=== PATIENT | male | born 1930 | race African-American/Black ===

== ENCOUNTER 2016-10-10 23:29 | Inpatient (IN) | payer OTHER ==
[~2016-10-10] VITALS: Ht 180.3 cm; Wt 75.7 kg
--- NOTE | ~2016-10-10 | HC ---
[facility] [place] [place] [address] CONSULTATION Name: JACQUELINE BETANCUR Amanda Room #: 241-P ADM IN M.R.#: [id number] Admission: 10/11/16 Attend Phys: Adonay Reddy MD Discharge: Date of : 32 Report #: [id number] THIS REPORT FOR: //name// CC: Prasad Singletary MD NO PCP DATE OF SERVICE: 10/11/2016 DATE OF SERVICE: 10/11/2016. REFERRING PROVIDER: Isac Singletary MD REASON FOR CONSULTATION: Respiratory failure. CHIEF COMPLAINT: Shortness of breath. HISTORY OF PRESENT ILLNESS: Our group was called about 5:30 this morning to evaluate the patient seen in the ICU this morning. He is unable to give any history due to the fact, he is on mechanical ventilatory support. No family immediately available at the bedside. Records reviewed from [facility] are available, and case discussed with healthcare providers. He is an 85-year-old male who has had a complicated course after an abdominal surgery. 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 He has been on TPN apparently since January with associated complications. He has been in a long-term care facility. He has a history of cardiomyopathy, ejection fraction of 30%, COPD with associated pulmonary hypertension and recurrent episodes of sepsis likely associated with line infections due to ongoing TPN. He started having increasing shortness of breath yesterday. Chest radiographs had shown some progression of a right-sided chest opacity. The patient was sent to the emergency department here at [facility] and subsequently admitted and placed on BiPAP due hypercapnic respiratory failure earlier this morning. He was found to be pulseless and unresponsive. The patient required CPR and emergent intubation and is now in the ICU on norepinephrine drip as well as mechanical ventilatory support. Acid base status has improved. In the interim, the patient responds well, open eyes at this time. ALLERGIES: None known. MEDICATIONS WHILE AT [place]: Include: 1. Clonidine 0.5 patch. 2. Diltiazem p.r.n. 3. Eucerin cream. 4. Lasix 40 mg daily. [facility] [address] [place] [address] CONSULTATION Name: JACQUELINE BETANCUR Room #: [facility] IN [facility].#: [id number] Admission: 10/11/16 Attend Phys: Adonay Reddy MD Discharge: Date of : 32 Report #: [id number] 5. Famotidine 20 mg q.12 hours IV. 6. Fentanyl 25 mcg patch. 7. Haldol p.r.n. 8. Heparin 5000 units subcutaneous q.8 hours. 9. Hydralazine p.r.n. 10. Hydrocodone p.r.n. 11. Hydromorphone p.r.n. 12. Insulin sliding scale. 13. DuoNebs q.i.d. 14. Keppra 375 twice daily IV. 15. Synthroid 0.025 mg IV daily. 16. Lidocaine patch. 17. Metoprolol p.r.n. 18. Octreotide 100 mg subcutaneously q.8 hours. 19. Seroquel 12.5 mg q.6 hours p.r.n. 20. TPN. SOCIAL HISTORY: Unobtainable due to his current status. FAMILY HISTORY: Unobtainable due to current status. REVIEW OF SYSTEMS: Otherwise, unobtainable due to current status. PAST MEDICAL HISTORY: Includes cardiomyopathy; peripheral vascular disease; COPD; history of left tsrid-ahc-zbtm amputation; pulmonary hypertension; chronic enterocutaneous fistula, on TPN; diabetes mellitus type 2; hypothyroidism; hypertension; possible depressive disorder. PHYSICAL EXAMINATION: VITAL SIGNS: He is hypothermic, pulse 80 and regular, respiratory rate 18 consistent with ventilator setting, blood pressure 130/70, peak pressure of 30 with assist control set at rate of 18, tidal volume of 550, and PEEP of 5. GENERAL: This is an elderly male, arousable, moving all extremities, appears to be responsive to voice. ENT: Endotracheal tube in place. Oropharynx not fully assessed. NECK: Supple. No lymphadenopathy noted. Jugular venous pressure does not appear elevated. LUNGS: Diminished on the right with some expiratory wheeze noted, but otherwise clear. CARDIOVASCULAR: Heart regular. No murmurs noted. ABDOMEN: Soft, large ostomy bag over but may be either fistula, but appears large enough to be an ostomy. Large healing midline incision noted. Bowel sounds were present. No tenderness noted on palpation. EXTREMITIES: Left tisob-lxj-fomz amputation with minimal edema. Pulses were 2+ in the upper extremities. [address] [address] CONSULTATION Name: GYPSYJACQUELINE D Room #: 241-P [facility] IN M.R.#: [id number] Admission: 10/11/16 Attend Phys: Adonay Reddy MD Discharge: Date of : 32 Report #: [id number] LABORATORY DATA: White blood cell count 21,000; hemoglobin 9; hematocrit 28 and platelet count 152. Sodium 143, potassium 3.5, chloride 105, bicarbonate 29, BUN 40, creatinine 1.0, glucose 101. Arterial blood gas on assist control, tidal volume 550, rate of 16, PEEP of 5 revealed pH 7.32, pCO2 of 61, pO2 is 460, bicarbonate 31. IMAGING STUDIES: Chest x-ray, there is right basilar opacity suggestive of pleural effusion, endotracheal tube, NG tube and PICC line in good position. IMPRESSION: 1. Status post cardiopulmonary arrest requiring cardiopulmonary resuscitation likely due to respiratory event. 2. Acute hypercapnic respiratory failure, improved with mechanical ventilatory support. 3. Right basilar opacity consistent with probable right pleural effusion. 4. History of enterocutaneous fistula, chronic. 5. History of chronic total parenteral nutrition. 6. Sepsis syndrome based on elevated white blood cell count, hypotension and organ dysfunction with respiratory failure. 7. Anemia. 8. Chronic obstructive pulmonary disease. 9. Cardiomyopathy. SUGGESTIONS: 1. Sepsis protocol. 2. CT chest, abdomen and pelvis. 3. Consider thoracentesis to the right chest if significant effusion is present. 4. Infectious disease consultation regarding antibiotics, cultures. 5. Consider changing out a PICC line depending on culture findings and the underlying history of the PICC placement. 6. Continue with mechanical ventilatory support. 7. Bronchodilators. 8. Await multiple cultures. 9. More recommendations to follow. Thank you for requesting our suggestions. Total critical care at the time of evaluation, discussion with nursing, physicians, and review of chart over 40 minutes, not including any procedures. <ELECTRONICALLY SIGNED> By: Ghulam Garcia MD 10/16/16 1133 0906 [id number] Ghulam Garcia MD /nt
--- NOTE | ~2016-10-10 | P ---
[facility] [address] [address] [place] [address] PROCEDURE REPORT Name: JACQUELINE BETANCUR Amanda Room #: 241-P ADM IN M.R.#: [id number] Admission: 10/11/16 Attend Phys: Coy Blanco DO Discharge: Date of : 32 Report #: [id number] THIS REPORT FOR: //name// CC: Coy Blanco NO PCP DATE OF SERVICE: 10/21/2016 PREPROCEDURE DIAGNOSIS: Pressure ulceration to the right lateral heel. POSTPROCEDURE DIAGNOSES: Pressure ulceration to the right lateral heel. PROCEDURE PERFORMED: Sharp excisional debridement of right lateral heel ulceration. DESCRIPTION OF PROCEDURE: The patient has given verbal permission to perform debridement. Anesthesia was obtained with topical 2% lidocaine gel. A sharp curette was then utilized to remove both necrotic and some viable tissue exceeding the wound margins laterally and in the base into subcutaneous tissue and down to a healthy bleeding base. Estimated blood loss was approximately 3 mL. Hemostasis was obtained with direct pressure. The patient had no complications. Pain level approximately 3 on a scale of 1-10. During the procedure, post-debridement wound measurements include 3.9 x 2.3 x 0.5 cm. A Medihoney dressing will be continued. The patient tolerated the procedure well. <ELECTRONICALLY SIGNED> By: Kilo Alonzo MD 10/24/16 0851 [id number] [id number] Kilo Alonzo MD /nt
--- NOTE | ~2016-10-10 | 2DMMODE ---
[facility] [address] [employer] [place] [address] 2 D/M-MODE ECHOCARDIOGRAM Name: JACQUELINE BETANCUR Room #: 241-P ADM IN M.R.#: [id number] Admission: 10/11/16 Attend Phys: Isac Galaviz Discharge: Date of : 32 Date of Service: 10/11/16 1623 Report #: [id number] THIS REPORT FOR: //name// APPROVED REPORT Study performed: 10/11/2016 13:24:57 EXAM: Comprehensive 2D, Doppler, and color-flow Echocardiogram Patient Location: Bedside Room #: 241 Other Information Study Quality: Adequate Indications Congestive Heart Failure COPD Diabetes CAD Chest Pain 2D Dimensions RVDd: 42.18 mm LVEF(%): 78.36 (>50%) IVSd: 16.81 (7-11mm) LVOT Diam: 21.97 (18-24mm) LVDd: 41.65 mm PWd: 15.83 (7-11mm) Ascending Ao: 30.27 (22-36mm) LVDs: 22.25 (25-40mm) Aortic Root: 29.28 mm IVC: 24.00 mm Garcia's LVEF: 78.36 % Volumes Left Atrial Volume (Systole) Single Plane 4CH: 48.69 mL Single Plane 2CH: 88.92 mL LA ESV Index: 36.00 mL/m2 Aortic Valve AoV Peak Sergio.: 2.17 m/s AO Peak Gr.: 18.85 mmHg LVOT Max P.98 mmHg LVOT Max V: 1.58 m/s BURTON Vmax: 2.76 cm2 Mitral Valve E/A Ratio: 0.9 MV Decel. Time: 341.21 ms [facility] [address] [place] [place] [address] 2 D/M-MODE ECHOCARDIOGRAM Name: JACQUELINE BETANCUR Room #: [facility] IN [facility].#: [id number] Admission: 10/11/16 Attend Phys: Isac Galaviz Discharge: Date of : 32 Date of Service: 10/11/16 1623 Report #: [id number] E Max Sergio.: 0.99 m/s MV A Sergio.: 1.10 m/s MV PHT: 98.95 ms IVRT: 128.03 ms Pulmonary Valve PV Peak Sergio.: 1.16 m/s PV Peak Gr.: 5.42 mmHg Pulmonary Vein P Vein S: 0.91 m/s P Vein A: 0.13 m/s P Vein D: 0.60 m/s P Vein A Dur.: 86.5 msec P Vein S/D Ratio: 1.52 Tricuspid Valve TR Peak Sergio.: 3.13 m/s RAP Estimate: 15.00 mmHg TR Peak Gr.: 39.18 mmHg Left Ventricle The left ventricle is normal size. There is normal LV segmental wall motion. Moderate concentric left ventricular hypertrophy. Left ventricular systolic function appears hyperdynamic. LVEF is >70%. Grade I - abnormal relaxation pattern. Right Ventricle Right ventricle is normal The right ventricular systolic function is normal. Atria Left atrium is borderline dilated. The right atrium size is normal. Aortic Valve The aortic valve is normal in structure. No aortic regurgitation is present. There is no aortic valvular stenosis. Mitral Valve The mitral valve is normal in structure. There is no mitral valve regurgitation noted. No evidence of mitral valve stenosis. Tricuspid Valve The tricuspid valve is normal in structure. Trace to mild tricuspid regurgitation. Pulmonic Valve The pulmonary valve is normal in structure. There is no [place]mon[place] [address] 2 D/M-MODE ECHOCARDIOGRAM Name: JACQUELINE BETANCUR Room #: 241-P [facility] IN .R.#: [id number] Admission: 10/11/16 Attend Phys: Isac Galaviz Discharge: Date of : 32 Date of Service: 10/11/16 1623 Report #: [id number] Great Vessels The aortic root is normal in size. IVC is dilated and unable to visualize collapse, patient is on a vent. Pericardium Circumferential pericardial effusion is present. No echo indications of pericardial tamponade. <Conclusion> Moderate concentric left ventricular hypertrophy. There is normal LV segmental wall motion. EF 65% The aortic valve is normal in structure. No aortic valvular stenosis or insufficiency. The mitral valve is normal in structure. No mitral valve regurgitation noted. IVC is dilated and unable to visualize collapse, patient is on a vent. Pulmonary artery pressure of 45-50mmHg. Moderately large pericardial effusion. Doppler study insufficient to exclude early tamponade physiology. <ELECTRONICALLY SIGNED> By: Tony Patel MD, [facility] 10/11/16 1623 1623 1623 Tony Patel MD, FACC /INF
--- NOTE | ~2016-10-10 | HC ---
[facility] [place] [address] [place] [address] CONSULTATION Name: GYPSYJACQUELINE D Room #: 241-P ADM IN M.R.#: [id number] Admission: 10/11/16 Attend Phys: Isac Singletary Discharge: Date of : 32 Report #: [id number] THIS REPORT FOR: //name// CC: Isac Singletary NO PCP REASON FOR CONSULTATION: I was asked to evaluate concerning sepsis and pneumonia with respiratory failure post-code. HISTORY OF PRESENT ILLNESS: The patient is an 85-year-old transferred from [facility] with respiratory compromise. In the emergency room, he became bradycardiac and required cardiac resuscitation and intubation, now on mechanical ventilation. The patient is an 85-year-old initially treated at [facility] following small-bowel obstruction. On 01/21/2016, he underwent exploratory laparotomy and repair of enterotomy. He had extensive adhesions and multiple loops of small bowel near to the incision site. Subsequently, the patient developed an enterocutaneous fistula. He was treated with TPN and bowel rest. He has been hospitalized at [facility] since 02/07/2016. He also has a history of coronary artery disease and cardiomyopathy with an ejection fraction of 30%, along with severe pulmonary hypertension, COPD and recurring episodes of sepsis. He has had gram-negative bacteremia and candidemia. It was noted yesterday that he became more short of breath. Chest x-ray showed extensive right lung infiltrate and effusion which had increased. There was some concern about congestive heart failure. Trial of diuresis failed to improve his status, and he was transferred for further treatment. PAST MEDICAL HISTORY: Diabetes, hypertension, hypernatremia, hypothyroidism, COPD, pulmonary hypertension, coronary artery disease, cardiomyopathy, seizure disorder, gastroesophageal reflux, hematuria, arthritis, appendectomy, left below knee amputation, previous colostomy with takedown. FAMILY HISTORY: Diabetes. SOCIAL HISTORY: He is a past smoker. No significant alcohol intake. ALLERGIES: No known allergies. MEDICATIONS: As noted on JUL, now on vancomycin, Levaquin and Zosyn. He has been on TPN. REVIEW OF SYSTEMS: The patient was unable to give any further details. He has a left upper extremity PICC. He is orally intubated, has an indwelling Astorga catheter. He has an abdominal fistula with bowel extruding from the wound. PHYSICAL EXAMINATION: [facility] [address] [place] [address] CONSULTATION Name: JACQUELINE BETANCUR Room #: 241-P [facility] IN .R.#: [id number] Admission: 10/11/16 Attend Phys: Isac Singletary Discharge: Date of : 32 Report #: [id number] VITAL SIGNS: He was hypothermic with temperature 92.6, now with a Edith Hugger on, pulse was 77, blood pressure 149/79, and MAP of 100 on Levophed drip, which is being tapered down, FiO2 of 40%. GENERAL: He was on propofol but was arousable. HEENT: Unremarkable. Orally intubated. NECK: Supple. LUNGS: Decreased breath sounds in the right side. HEART: Regular, without murmur. ABDOMEN: He had a large wound to his mid abdomen with a small bowel exposed. Abdomen was soft, otherwise no other masses. GENITOURINARY: Indwelling Astorga catheter. Genitalia unremarkable. EXTREMITIES: Left BKA site unremarkable. Right lower extremity with a pressure wound over the lateral malleolus. LABORATORY AND DIAGNOSTIC STUDIES: Hemoglobin 9.2; WBC 20.8; platelet count 152,000, bands 11%, metamyelocytes 3%, occasional burst cells, occasional target cells, few ovalocytes. Sodium 143, potassium 3.5, bicarbonate 29, creatinine 1, AST 27, bilirubin 0.6, alkaline phosphatase 164, ALT 25, albumin at 2.6. Chest x-ray: Cardiomegaly, wide mediastinum. PICC line, left with tip in the SVC. Moderately large right pleural effusion with basilar atelectasis and infiltrate. Small area of infiltrate in the left mid lung and base. ABGs on 100% FIO2 earlier this a.m., pO2 is 460, pCO2 of 60, pH 7.32. Troponin 0.15. Electrocardiogram, sinus rhythm, atrial premature complex. IMPRESSION: An 85-year-old with respiratory failure, post-code, right pleural effusion with pneumonitis likely, combination along with atelectasis in the setting of chronic total parenteral nutrition for enterocutaneous fistula. Source of his sepsis, I would expect pulmonary over intraabdominal source versus urinary tract or possibly central venous access infection. We would recommend continuing broad antibiotic coverage pending culture results. We will await sputum culture, blood cultures, obtain urinalysis and urine culture. We would consider thoracentesis over the right chest. Considering this is his 8th month postop, I would think that the fistula has a very poor chance of healing. We would consider alternative means of nutrition from total parenteral nutrition. May need to discuss this further with surgical consultation. <ELECTRONICALLY SIGNED> By: Prasad Rankin MD 10/12/16 1112 0841 0106 Prasad Rankin MD /nt
--- NOTE | ~2016-10-10 | HC ---
[facility] [place] [address] CONSULTATION Name: GYPSYJACQUELINE D Room #: 241-P ADM IN M.R.#: [id number] Admission: 10/11/16 Attend Phys: Adonay Reddy MD Discharge: Date of : 32 Report #: [id number] THIS REPORT FOR: //name// CC: Coy SWANN DATE OF SERVICE: 10/14/2016 DATE OF EVALUATION AND CONSULTATION: 10/14/2016. CHIEF COMPLAINT: Right lateral ankle ulcer. HISTORY OF PRESENT ILLNESS: This is an 85-year-old male patient who is seen in intensive care. He was transferred from for progressive shortness of breath. It was noted that he on 10/11/2016, had an episode of bradycardia and became unresponsive and pulseless. He was resuscitated and intubated. He is now on a respirator. He is unable to respond to questioning, and additional details are from review of current medical records. The patient was originally treated at [facility] following a small-bowel obstruction. In January, he underwent exploratory laparotomy and repair of enterotomy. He had multiple adhesions and had developed an enterocutaneous fistula which was treated with TPN and bowel rest and reportedly has been hospitalized at [facility]. PAST MEDICAL HISTORY: Other than that mentioned in the history of present illness, positive for coronary artery disease, cardiomyopathy, ejection fraction of 30%, severe pulmonary hypertension, COPD, recurring episodes of sepsis. He has a history of diabetes, hypernatremia, hypothyroidism, seizure disorder, and gastroesophageal reflux. Previous colostomy with takedown, left below knee amputation. FAMILY HISTORY: Positive for diabetes. SOCIAL HISTORY: It is noted that he is a past smoker. No history of known alcohol intake. ALLERGIES: None. MEDICATIONS: Noted on the JUL. He is also currently on intravenous antibiotics. He has also been on TPN. REVIEW OF SYSTEMS: Unobtainable due to the patient's unresponsive state. PHYSICAL EXAMINATION: VITAL SIGNS: Include temperature of 96, pulse rate 56, respiratory rate of 25, blood pressure 97/44. [facility] [address] [place] [address] CONSULTATION Name: JACQUELINE BETANCUR Room #: 241-P [facility] IN ..#: [id number] Admission: 10/11/16 Attend Phys: Adonay Reddy MD Discharge: Date of : 32 Report #: [id number] GENERAL: This is a chronically ill-appearing male patient who is lying in bed with his eyes closed. He has been minimally responsive. HEENT: Head is normocephalic. The patient is currently intubated orotracheally. LUNGS: Diminished. HEART: Sounds slightly distant. ABDOMEN: Soft, slightly distended. The patient has an enterocutaneous fistula. EXTREMITIES: Examination of lower extremities demonstrates what appears to be a well-healed left below-knee amputation. The patient has ulceration on the right lateral ankle. There is some granulation tissue at the margins. The full depth is not entirely appreciated, though does not appear to have any deep bony structures exposed at this time. There is moderate fibrin clot present. CLINICAL IMPRESSION: 1. Presumed pressure ulceration to the right lateral ankle. 2. Peripheral arterial disease by clinical exam. 3. History of small-bowel obstruction and surgery with subsequent enterocutaneous fistula. RECOMMENDATION AT THIS POINT IN TIME: At some point, it may be appropriate to assess the patient's arterial status. We will recommend that he would be turned and repositioned. We will review notes for current management of his enterocutaneous fistula. Continue nutritional support, turning your position every 2 hours, a protective boot to the right lower extremity. Please see wound care orders for specific care regimen to the right ankle. I appreciate being asked to see him in consultation. <ELECTRONICALLY SIGNED> By: Kilo Alonzo MD 10/16/16 2037 0931 2155 Kilo Alonzo MD /nt
--- NOTE | ~2016-10-10 | P ---
[facility] [place] [address] [address] PROCEDURE REPORT Name: GYPSYJACQUELINE JAY Amanda Room #: 241-P [facility] IN M.R.#: [id number] Admission: 10/11/16 Attend Phys: Coy Blanco DO Discharge: Date of : 32 Report #: [id number] THIS REPORT FOR: //name// CC: Coy MOLINA PCP DATE OF SERVICE: 10/22/2016 INDICATION: Respiratory failure, recurrent mucous plugging and hypoxemia. PROCEDURE NOTATION: The patient was hypoxemic while off BiPAP and had difficulty recovering while on noninvasive positive pressure ventilation. Has had difficulty with mucus plugging. The patient indicated for repeat intubation. The patient was given 24 mg of etomidate after being in adequate position in a sniff position. The patient was adequately sedated with this. The patient was able to bag mask, ventilate with oxygen saturation 100% using a MAC 4 blade. Grade I view of the vocal cords was noted. There were some secretions noted on top of the vocal cords. An 8.0 endotracheal tube was inserted and advanced 25 cm at the lip. Positive bilateral breath sounds and Easy Cap color changes were noted. On subsequent bronchoscopy, the endotracheal tube was confirmed in good position and adjusted to 25 cm and secured at this position. Please see subsequent bronchoscopy note for further details. <ELECTRONICALLY SIGNED> By: Ghulam Garcia MD 10/27/16 1203 1028 37 Ghulam Garcia MD /harvey
--- NOTE | ~2016-10-10 | P ---
[facility] [place] [address] PROCEDURE REPORT Name: GYPSYJACQUELINE VELASCO Amanda Room #: 241-P [facility] IN M.R.#: [id number] Admission: 10/11/16 Attend Phys: Coy Blanco DO Discharge: Date of : 32 Report #: [id number] THIS REPORT FOR: //name// CC: Coy Blanco NO PCP DATE OF SERVICE: 10/22/2016 BRONCHOSCOPY NOTE DATE OF SERVICE: 10/22/2016. PROCEDURE: Fiberoptic bronchoscopy through an endotracheal tube with of mucus plugging. INDICATION: Recurrent mucous plugging and respiratory failure. PROCEDURE NOTATION: After adequate intubation, disposable bronchoscope was advanced through the endotracheal tube and endotracheal tube was subsequently repositioned at 25 cm, which was a good position above the brodie. This was secured in place and airways were surveyed. Significant mucus plugging was noted within the right main stem bronchus, left lower lobe bronchus and also some significant thick tracheal secretions were noted on initial bronchoscopy. These were purged and aspirated and with subsequent washings sent for cultures. Airways were patent after procedure with no significant mass, lesions or other anatomic variations noted. The patient tolerated well. No noted complications, remained maintain oxygen saturation 100% throughout the procedure. The patient had been sedated with propofol while on mechanical ventilatory support. <ELECTRONICALLY SIGNED> By: Ghulam Garcia MD 10/27/16 1203 1029 1111 Ghulam Garcia MD /harvey
--- NOTE | ~2016-10-10 | CNG ---
[facility] [place] [address] CYTO-NONGYN REPORT PROCEDURE Name: NACHO BETANCUR Room #: 241-P ADM IN M.R.#: [id number] Admission: 10/11/16 Date of : 34 Discharge: Report #: [id number] Path Case #: [id number] CYTOPATHOLOGY REPORT COLLECTION DATE: 10/22/2016 RECEIVED DATE: 10/22/2016 SUBMITTING PHYS: Dr. Ghulam Garcia OTHER PHYS: Dr. Coy Blanco CLINICAL HISTORY: Resp distress/PNA/pleural effusion. SPECIMEN(S) RECEIVED: A.Bronchial wash, NOS * * * * * * * * * * * * FINAL DIAGNOSIS: A. Bronchial wash, NOS: ATYPICAL CLUSTERS OF CELLS IDENTIFIED; SEE COMMENT. COMMENT: Few groups of atypical cells with enlarged nuclei are identified forming glands; however with cilia. Findings may be suggestive of a reactive process in a background of inflammation. Clinical correlation is suggested. PATHOLOGIST: Lexi Small M.D. REPORT ELECTRONICALLY SIGNED BY: Lexi mSall M.D. DATE/TIME: 10/23/2016 14:50 * * * * * * * * * * * * GROSS PATHOLOGY: A. Bronchial wash, NOS: The specimen is submitted unfixed, labeled "Nacho Betancur". Received by the Cytology Department is 10 mL of cloudy pink fluid. One ThinPrep slide was prepared. (clt 10.22.2016) SADDLE MECHANIC(S): OPHELIA Jackson(ASCP) INITIAL CPT CODE(S): A; 45838 Professional services performed by [facility] at [facility] [address], [place] [address] Technical services performed by [facility] at [address] [place] [address], [address] [address] [facility] [address] [place] [address] CYTO-NONGYN REPORT PROCEDURE Name: NACHO BETANCUR Room #: 241-P ADM IN M.R.#: [id number] Admission: 10/11/16 Date of : 34 Discharge: Report #: [id number] Path Case #: [id number] [facility] [address] [place] [address], [address] [place] [address] PHONE: [phone] DIRECTOR: Aaron To M.D. * * * END OF REPORT * * *
--- NOTE | ~2016-10-10 | EKG ---
[address] [place] [address] ELECTROCARDIOGRAM REPORT Name: JACQUELINE BETANCUR Room #: 241-P ADM IN M.R.#: [id number] Admission: 10/11/16 Attend Phys: Isac Singletary Discharge: Date of : 34 Report #: [id number] THIS REPORT FOR: //name// [facility] ED Test Date: 2016-10-11 Test Time: 01:40:15 Pat Name: JACQUELINE BETANCUR Department: Room: 241 Gender: M Design Lead: [id number] : 1930 Requested By: Kathy Macias Order Number: [id number] MD: Tony Patel Measurements Intervals [place] Rate: 63 P: 47 GA: 189 QRS: 22 QRSD: 93 T: 46 QT: 449 QTc: 460 Interpretive Statements Sinus rhythm Atrial premature complex No previous ECG available for comparison Electronically Signed On 10-11-2016 16:45:50 CDT by Tony Patel [email or web address] <ELECTRONICALLY SIGNED> By: Tony Patel MD, [facility] 10/11/16 1645 0140 0140 Tony Patel MD, FACC /EPI
--- NOTE | ~2016-10-10 | CNG ---
[facility] [place] [place] [address] CYTO-NONGYN REPORT PROCEDURE Name: NACHO BETANCUR Room #: 241-P ADM IN M.R.#: [id number] Admission: 10/11/16 Date of : 34 Discharge: Report #: [id number] Path Case #: [id number] CYTOPATHOLOGY REPORT COLLECTION DATE: 10/12/2016 RECEIVED DATE: 10/13/2016 SUBMITTING PHYS: Dr. Ghulam Garcia OTHER PHYS: Dr. Isac Singletray CLINICAL HISTORY: Resp distress/PNA/pleural effusion. SPECIMEN(S) RECEIVED: A.Pleural fluid, Right * * * * * * * * * * * * FINAL DIAGNOSIS: A. Pleural fluid, Right: - No malignant cells identified. - Paucicellular specimen with rare reactive mesothelial cells and scattered predominantly chronic inflammatory cells identified. PATHOLOGIST: Vania Magana M.D. REPORT ELECTRONICALLY SIGNED BY: Vania Magana M.D. DATE/TIME: 10/14/2016 13:01 * * * * * * * * * * * * GROSS PATHOLOGY: A. Pleural fluid, Right: The specimen is submitted unfixed, labeled "Nacho Betancur". Received by the Cytology Department is 10 mL of cloudy yellow fluid. One ThinPrep slide and a cell block were prepared. (clt 10.13.2016) DOLL SURGEON(S): OPHELIA Jackson([facility]) INITIAL CPT CODE(S): A; 80490, 73923 Professional services performed by [facility] at [facility] [address], [place] [address] Technical services performed by [facility] at [address] [place] [address]., [address], [place] [address]. [facility] [address] [place] [address], [address] [place] [address] [facility] [address] [place] [address] CYTO-NONGYN REPORT PROCEDURE Name: NACHO BETANCUR Room #: 241-P ADM IN ..#: [id number] Admission: 10/11/16 Date of : 34 Discharge: Report #: [id number] Path Case #: [id number] PHONE: [phone] DIRECTOR: Aaron To M.D. * * * END OF REPORT * * *
[2016-10-10 23:30] VITALS: BP 133/93
[2016-10-10 23:57] LABS: ABG SAMPLE TYPE ARTERIAL; BE(vivo) 6.5 mmol/L (-2 to +3); HCO3 35.9 mmol/L (22.0-26.0); LACTATE 1.45 mmol/L (0.5-2.0); O2(CT) 13.4 mL/dL (15.0-23.0); O2Hb 92.1 % (92.0-98.0); PCO2 85.3 mmHg (35.0-45.0); PO2 75.2 mmHg (80.0-100.0); STICK SITE L.RADIAL; pH 7.242 (7.360-7.450); sO2 91.8 % (92.0-98.0); tCO2 38.5 mmol/L (24.0-30.0)
[2016-10-11] VITALS (25 sets, daily range): BP systolic 50–149; BP diastolic 28–79
[2016-10-11 00:14] LABS: HEMATOCRIT 28.7 % (42.0-52.0); HEMOGLOBIN 9.4 gm/dL (14.0-18.0); MCH 30.3 pg (26.0-34.0); MCHC 32.8 g/dL (28.0-37.0); MCV 92.5 fL (80.0-100.0); PLATELET COUNT 149 thou/uL (150-400); RDW 17.5 % (10.5-14.5); WBC 9.4 thou/uL (4.0-11.0)
[2016-10-11 00:22] LABS: CALCIUM 9.6 mg/dL (8.5-10.1); POTASSIUM 3.9 mmol/L (3.5-5.1)
[2016-10-11 00:23] LABS: MANUAL DIFF YES
[2016-10-11 00:49] LABS: ABSOLUTE NEUTROPHILS 7.1 thou/uL (1.4-8.2); ANISOCYTOSIS 1+; LARGE PLATELETS FEW; TOTAL CELL COUNT 100
[2016-10-11 01:09] LABS: ABG SAMPLE TYPE ARTERIAL; HCO3 35.1 mmol/L (22.0-26.0); LACTATE 1.32 mmol/L (0.5-2.0); O2(CT) 12.7 mL/dL (15.0-23.0); O2Hb 91.8 % (92.0-98.0); PCO2 72.6 mmHg (35.0-45.0); PO2 70.8 mmHg (80.0-100.0); pH 7.302 (7.360-7.450); sO2 91.9 % (92.0-98.0); tCO2 37.3 mmol/L (24.0-30.0)
[2016-10-11 01:10] LABS: FIO2 40 %; Pressure Support 14 cm H20; STICK SITE L.RADIAL
[2016-10-11 05:08] LABS: ABG SAMPLE TYPE ARTERIAL; BE(vivo) 3.7 mmol/L (-2 to +3); HCO3 30.8 mmol/L (22.0-26.0); LACTATE 2.66 mmol/L (0.5-2.0); O2(CT) 15.1 mL/dL (15.0-23.0); O2Hb 98.9 % (92.0-98.0); PCO2 60.8 mmHg (35.0-45.0); PO2 460.1 mmHg (80.0-100.0); STICK SITE R.RADIAL; TIDAL VOLUME 550 ml; pH 7.322 (7.360-7.450); sO2 99.8 % (92.0-98.0); tCO2 32.6 mmol/L (24.0-30.0)
[2016-10-11 05:56] LABS: HEMATOCRIT 28.4 % (42.0-52.0); HEMOGLOBIN 9.2 gm/dL (14.0-18.0); MANUAL DIFF YES; MCHC 32.3 g/dL (28.0-37.0); MCV 92.9 fL (80.0-100.0); PLATELET COUNT 152 thou/uL (150-400); RBC 3.06 mil/uL (4.50-6.00); RDW 17.8 % (10.5-14.5); WBC 20.8 thou/uL (4.0-11.0)
[2016-10-11 06:06] LABS: CALCIUM 8.9 mg/dL (8.5-10.1); POTASSIUM 3.5 mmol/L (3.5-5.1)
[2016-10-11 06:11] LABS: ALBUMIN 2.6 g/dL (3.4-5.0); MAGNESIUM 1.8 mg/dL (1.8-2.4); TOTAL BILIRUBIN 0.6 mg/dL (<0.1-1.0); TOTAL PROTEIN 6.5 g/dL (6.4-8.2)
[2016-10-11 07:17] LABS: ABSOLUTE NEUTROPHILS 18.5 thou/uL (1.4-8.2); LARGE PLATELETS FEW; METAMYELOCYTES 3 %; TOTAL CELL COUNT 100
[2016-10-11 07:18] LABS: ANISOCYTOSIS 1+; BURR CELLS OCCASIONAL; HYPOCHROMASIA SLIGHT; OVALOCYTES FEW; POIKILOCYTOSIS 1+; TARGET CELLS OCCASIONAL
[2016-10-11] MEDS ORDERED: FEVERALL650 MG RECTAL (07:25)
[2016-10-11] MEDS ORDERED: CATAPRES-TTS 10.1 MG TOP (07:28)
[2016-10-11] MEDS ORDERED: DIPHENHYDRAM50 MG/M2 IV (07:29)
[2016-10-11] MEDS ORDERED: DIAZEPAM5 MG/1 M1 IV (07:29)
[2016-10-11] MEDS ORDERED: EUCERIN CREME57 GM TOP (07:30)
[2016-10-11] MEDS ORDERED: FAMOTIDINE10 MG/1 ML IV (07:31)
[2016-10-11] MEDS ORDERED: DURAGESIC25 MCG/HR TP (07:33)
[2016-10-11] MEDS ORDERED: FUROSEMIDE20 MG/2 ML IV (07:33)
[2016-10-11] MEDS ORDERED: HALOPERIDOL5 MG/1 ML IJ (07:34)
[2016-10-11] MEDS ORDERED: HALOPERIDOL5 MG/1 ML IM (07:35)
[2016-10-11] MEDS ORDERED: HEPARIN 1,100 UNIT/1 SUBQ (07:36)
[2016-10-11] MEDS ORDERED: HYDROCODONE-AP1 EAC6 PO (07:38)
[2016-10-11] MEDS ORDERED: HYDRALAZINE20 MG/M1 IV (07:40)
[2016-10-11] MEDS ORDERED: DUONEB 2.5-0.5 M3 ML INH ×2 (07:43→07:44)
[2016-10-11] MEDS ORDERED: DILAUDID1 MG/1 ML IV (07:43)
[2016-10-11] MEDS ORDERED: LEVOTHYROXINE500 MCG IV (07:45)
[2016-10-11] MEDS ORDERED: KEPPRA500 MG/5 M IV (07:45)
[2016-10-11] MEDS ORDERED: LIDODERM 5%1 PATC1 TRANSDERM (07:46)
[2016-10-11] MEDS ORDERED: NYSTATIN 1100000 U/M PO (07:48)
[2016-10-11] MEDS ORDERED: METOPROLOL IV (07:48)
[2016-10-11] MEDS ORDERED: OCTREOTIDE100 MCG/2 SUBQ (07:49)
[2016-10-11] MEDS ORDERED: ZOFRAN IV (07:50)
[2016-10-11] MEDS ORDERED: SEROQUEL 25 MG25 M1 PO (07:51)
[2016-10-11] MEDS ORDERED: SILVADENE20 GM TOP (07:53)
[2016-10-11] MEDS ORDERED: TPN IV (07:54)
[2016-10-11] MEDS ORDERED: LIPID IV (07:57)
[2016-10-11] MEDS ORDERED: NOVOLOG100 UNIT/1 SUBQ ×2 (08:00→08:02)
[2016-10-11] MEDS ORDERED: hydralazine IV (09:12)
[2016-10-11 10:52] LABS: ABG SAMPLE TYPE VENOUS; BE(vivo) 5.8 mmol/L (-2 to +3); HCO3 31.4 mmol/L (22.0-26.0); LACTATE 2.01 mmol/L (0.5-2.0); O2(CT) 10.4 mL/dL (15.0-23.0); O2Hb VENOUS 79.3 (65.0-85.0); PCO2 VENOUS 51.5 mmHg (41.0-51.0); PO2 VENOUS 43.7 mmHg (35.0-45.0); STICK SITE LINE
[2016-10-11 11:06] LABS: HEMOGLOBIN 8.7 gm/dL (14.0-18.0); PLATELET COUNT 144 thou/uL (150-400)
[2016-10-11 11:10] LABS: MCH 29.6 pg (26.0-34.0); MCHC 33.6 g/dL (28.0-37.0); RBC 2.95 mil/uL (4.50-6.00); RDW 16.8 % (10.5-14.5); WBC 19.4 thou/uL (4.0-11.0)
[2016-10-11 11:12] LABS: MANUAL DIFF YES
[2016-10-11 11:13] LABS: CALCIUM 8.6 mg/dL (8.5-10.1); CREATININE 1.1 mg/dL (0.7-1.3); POTASSIUM 3.9 mmol/L (3.5-5.1)
[2016-10-11 11:17] LABS: ALBUMIN 2.5 g/dL (3.4-5.0); TOTAL BILIRUBIN 0.7 mg/dL (<0.1-1.0); TOTAL PROTEIN 6.3 g/dL (6.4-8.2)
[2016-10-11 11:22] LABS: FIBRINOGEN 320.1 mg/dL (210-360); INR 1.2; PROTIME 12.1 Seconds (9.3-11.4)
[2016-10-11 11:30] LABS: ABSOLUTE NEUTROPHILS 18.2 thou/uL (1.4-8.2); ANISOCYTOSIS 1+; TOTAL CELL COUNT 100
[2016-10-11 11:49] LABS: URINE BILIRUBIN NEGATIVE (Negative); URINE BLOOD TRACE (Negative); URINE COLOR YELLOW; URINE GLUCOSE-RANDOM* NEGATIVE (Negative); URINE KETONES NEGATIVE (Negative); URINE NITRITE POSITIVE (Negative); URINE PROTEIN (DIPSTICK) NEGATIVE (Negative); URINE SPECIFIC GRAVITY <= 1.005 (1.003-1.035); URINE UROBILINOGEN 0.2 E.U./dl (0.2-1.0)
[2016-10-11 12:05] LABS: ABG SAMPLE TYPE VENOUS; BE(vivo) 3.1 mmol/L (-2 to +3); HCO3 28.3 mmol/L (22.0-26.0); LACTATE 1.57 mmol/L (0.5-2.0); O2(CT) 10.4 mL/dL (15.0-23.0); O2Hb VENOUS 83.8 (65.0-85.0); PCO2 VENOUS 46.9 mmHg (41.0-51.0); PO2 VENOUS 48.7 mmHg (35.0-45.0); STICK SITE LINE; tCO2 29.8 mmol/L (24.0-30.0)
[2016-10-11 12:05] LABS: CASTS None Seen /LPF (None Seen); CRYSTALS None Seen /LPF (None Seen); SQUAMOUS None Seen /LPF (0-3); URINE RBC 3-10 Few /HPF (0-2); URINE WBC 6-15 Few /HPF (0-5)
[2016-10-11 12:06] LABS: BACTERIA 1-9 Few /HPF (None Seen)
[2016-10-11 12:53] LABS: ABG SAMPLE TYPE VENOUS; BE(vivo) 2.4 mmol/L (-2 to +3); HCO3 27.9 mmol/L (22.0-26.0); LACTATE 1.69 mmol/L (0.5-2.0); O2(CT) 11.2 mL/dL (15.0-23.0); O2Hb VENOUS 87.8 (65.0-85.0); PCO2 VENOUS 48.1 mmHg (41.0-51.0); PO2 VENOUS 56.9 mmHg (35.0-45.0); STICK SITE LINE; sO2 VENOUS 88.9 % (65.0-85.0); tCO2 29.4 mmol/L (24.0-30.0)
[2016-10-11 13:50] LABS: APTT 33.9 Seconds (24.5-32.8); FIBRINOGEN 325.5 mg/dL (210-360); INR 1.2; PROTIME 12.1 Seconds (9.3-11.4)
[2016-10-11 13:51] LABS: CALCIUM 8.5 mg/dL (8.5-10.1); CREATININE 1.1 mg/dL (0.7-1.3); POTASSIUM 3.9 mmol/L (3.5-5.1)
[2016-10-11 17:03] LABS: CALCIUM 8.2 mg/dL (8.5-10.1); CREATININE 1.2 mg/dL (0.7-1.3); POTASSIUM 3.7 mmol/L (3.5-5.1)
[2016-10-12] VITALS (45 sets, daily range): BP systolic 88–154; BP diastolic 31–69
[2016-10-12 02:10] LABS: GLYCOHEMOGLOBIN (HGB A1C) 4.9 % (4.8-5.6)
[2016-10-12 05:10] LABS: HEMATOCRIT 25.5 % (42.0-52.0); HEMOGLOBIN 8.6 gm/dL (14.0-18.0); MCH 30.3 pg (26.0-34.0); MCHC 33.7 g/dL (28.0-37.0); MCV 89.8 fL (80.0-100.0); PLATELET COUNT 145 thou/uL (150-400); RBC 2.84 mil/uL (4.50-6.00); RDW 17.7 % (10.5-14.5); WBC 8.6 thou/uL (4.0-11.0)
[2016-10-12 05:14] LABS: MANUAL DIFF YES
[2016-10-12 05:23] LABS: PHOSPHORUS 3.6 mg/dL (2.5-4.9)
[2016-10-12 05:24] LABS: ALBUMIN 2.1 g/dL (3.4-5.0); CALCIUM 7.9 mg/dL (8.5-10.1); CREATININE 1.4 mg/dL (0.7-1.3); POTASSIUM 3.7 mmol/L (3.5-5.1); TOTAL BILIRUBIN 0.5 mg/dL (<0.1-1.0); TOTAL PROTEIN 5.7 g/dL (6.4-8.2)
[2016-10-12 05:47] LABS: ANISOCYTOSIS 1+; LARGE PLATELETS OCCASIONAL; TOTAL CELL COUNT 100
[2016-10-12 10:15] LABS: BF NUCLEATED CELLS 171; BF RBC 646
[2016-10-12 13:20] LABS: CLARITY CLEAR; COLOR YELLOW; MANUAL DIFF YES; TOTAL VOLUME 60 mL
[2016-10-12 13:21] LABS: BF MACROPHAGE 24; BF NEUTROPHILS 14
[2016-10-13] VITALS (24 sets, daily range): BP systolic 103–138; BP diastolic 41–86
[2016-10-13 03:06] LABS: BODY FLUID ALBUMIN 1.5 g/dL (()); BODY FLUID AMYLASE 16 U/L (()); BODY FLUID GLUCOSE 155 mg/dL (()); BODY FLUID LDH 79 IU/L (()); BODY FLUID PROTEIN 2.8 g/dL (())
[2016-10-13 05:19] LABS: ABG SAMPLE TYPE ARTERIAL; BE(vivo) -1.5 mmol/L (-2 to +3); FIO2 40 %; HCO3 22.3 mmol/L (22.0-26.0); O2(CT) 11.5 mL/dL (15.0-23.0); O2Hb 97.3 % (92.0-98.0); PCO2 33.6 mmHg (35.0-45.0); PO2 159.1 mmHg (80.0-100.0); STICK SITE L.BRACHIAL; sO2 99.1 % (92.0-98.0); tCO2 23.3 mmol/L (24.0-30.0)
[2016-10-13 05:20] LABS: TIDAL VOLUME 550 ml
[2016-10-13 05:49] LABS: MAGNESIUM 1.8 mg/dL (1.8-2.4)
[2016-10-13 05:50] LABS: ALBUMIN 2.1 g/dL (3.4-5.0); CALCIUM 8.2 mg/dL (8.5-10.1); CREATININE 1.4 mg/dL (0.7-1.3); POTASSIUM 3.7 mmol/L (3.5-5.1); TOTAL BILIRUBIN 0.4 mg/dL (<0.1-1.0); TOTAL PROTEIN 5.7 g/dL (6.4-8.2)
[2016-10-13 05:53] LABS: HEMATOCRIT 23.9 % (42.0-52.0); HEMOGLOBIN 8.1 gm/dL (14.0-18.0); MCH 29.9 pg (26.0-34.0); MCHC 33.8 g/dL (28.0-37.0); MCV 88.4 fL (80.0-100.0); PLATELET COUNT 120 thou/uL (150-400); RBC 2.71 mil/uL (4.50-6.00); RDW 18.1 % (10.5-14.5); WBC 6.9 thou/uL (4.0-11.0)
[2016-10-13 05:55] LABS: MANUAL DIFF YES
[2016-10-13 08:55] LABS: ANISOCYTOSIS 2+; METAMYELOCYTES 1 %; MICROCYTES 2+; PLATELET ESTIMATE NORMAL; TOTAL CELL COUNT 100
[2016-10-14] VITALS (20 sets, daily range): BP systolic 96–149; BP diastolic 44–74
[2016-10-14 04:20] LABS: HEMATOCRIT 25.4 % (42.0-52.0); HEMOGLOBIN 8.4 gm/dL (14.0-18.0); MCHC 33.2 g/dL (28.0-37.0); MCV 90.3 fL (80.0-100.0); PLATELET COUNT 106 thou/uL (150-400); RBC 2.81 mil/uL (4.50-6.00); RDW 17.7 % (10.5-14.5); WBC 5.8 thou/uL (4.0-11.0)
[2016-10-14 04:24] LABS: MANUAL DIFF YES
[2016-10-14 04:33] LABS: CALCIUM 8.2 mg/dL (8.5-10.1); CREATININE 1.2 mg/dL (0.7-1.3); MAGNESIUM 1.8 mg/dL (1.8-2.4); PHOSPHORUS 4.1 mg/dL (2.5-4.9); POTASSIUM 3.4 mmol/L (3.5-5.1)
[2016-10-14 05:46] LABS: ABSOLUTE NEUTROPHILS 4.2 thou/uL (1.4-8.2); ANISOCYTOSIS SLIGHT; MACROCYTES SLIGHT; TOTAL CELL COUNT 100
[2016-10-14 09:05] LABS: ABG SAMPLE TYPE ARTERIAL; BE(vivo) -3.4 mmol/L (-2 to +3); HCO3 23.4 mmol/L (22.0-26.0); O2(CT) 13.5 mL/dL (15.0-23.0); O2Hb 96.9 % (92.0-98.0); PCO2 50.8 mmHg (35.0-45.0); PO2 132.9 mmHg (80.0-100.0); sO2 98.3 % (92.0-98.0); tCO2 24.9 mmol/L (24.0-30.0)
[2016-10-14 09:06] LABS: pH 7.281 (7.360-7.450)
[2016-10-14 09:08] LABS: Pressure Support 8 cm H20; STICK SITE R.RADIAL; TIDAL VOLUME 434 ml
[2016-10-15] VITALS (27 sets, daily range): BP systolic 106–176; BP diastolic 49–107
[2016-10-15 04:55] LABS: ABG SAMPLE TYPE ARTERIAL; BE(vivo) 0.5 mmol/L (-2 to +3); HCO3 24.9 mmol/L (22.0-26.0); O2(CT) 15.4 mL/dL (15.0-23.0); O2Hb 96.9 % (92.0-98.0); PCO2 39.6 mmHg (35.0-45.0); PO2 115.8 mmHg (80.0-100.0); pH 7.417 (7.360-7.450); sO2 98.3 % (92.0-98.0); tCO2 26.2 mmol/L (24.0-30.0)
[2016-10-15 05:39] LABS: STICK SITE R.RADIAL
[2016-10-15 05:40] LABS: ABG COMMENT A/C RATE 12; TIDAL VOLUME 550 ml
[2016-10-15 06:29] LABS: HEMATOCRIT 25.4 % (42.0-52.0); HEMOGLOBIN 8.5 gm/dL (14.0-18.0); MCH 29.7 pg (26.0-34.0); MCHC 33.5 g/dL (28.0-37.0); MCV 88.4 fL (80.0-100.0); PLATELET COUNT 119 thou/uL (150-400); RBC 2.87 mil/uL (4.50-6.00); RDW 17.5 % (10.5-14.5)
[2016-10-15 06:43] LABS: CALCIUM 8.2 mg/dL (8.5-10.1); CREATININE 1.2 mg/dL (0.7-1.3); PHOSPHORUS 3.8 mg/dL (2.5-4.9); POTASSIUM 3.7 mmol/L (3.5-5.1)
[2016-10-15 06:53] LABS: MANUAL DIFF YES
[2016-10-15 07:52] LABS: ABSOLUTE NEUTROPHILS 5.5 thou/uL (1.4-8.2); ANISOCYTOSIS 1+; METAMYELOCYTES 1 %; TOTAL CELL COUNT 100
[2016-10-16] VITALS (24 sets, daily range): BP systolic 132–167; BP diastolic 56–75
[2016-10-16 05:49] LABS: HEMOGLOBIN 8.9 gm/dL (14.0-18.0); MCH 29.6 pg (26.0-34.0); MCV 89.9 fL (80.0-100.0); PLATELET COUNT 119 thou/uL (150-400); RDW 17.3 % (10.5-14.5)
[2016-10-16 05:50] LABS: MANUAL DIFF YES
[2016-10-16 06:03] LABS: MAGNESIUM 2.1 mg/dL (1.8-2.4); PHOSPHORUS 4.1 mg/dL (2.5-4.9)
[2016-10-16 06:04] LABS: CALCIUM 8.5 mg/dL (8.5-10.1); CREATININE 1.3 mg/dL (0.7-1.3); TOTAL BILIRUBIN 0.5 mg/dL (<0.1-1.0); TOTAL PROTEIN 6.2 g/dL (6.4-8.2)
[2016-10-16 06:35] LABS: ABSOLUTE NEUTROPHILS 5.3 thou/uL (1.4-8.2); ANISOCYTOSIS 1+; TOTAL CELL COUNT 100
[2016-10-17] VITALS (23 sets, daily range): BP systolic 124–179; BP diastolic 48–82
[2016-10-17 05:18] LABS: HEMATOCRIT 27.6 % (42.0-52.0); HEMOGLOBIN 9.2 gm/dL (14.0-18.0); MCH 29.5 pg (26.0-34.0); MCHC 33.2 g/dL (28.0-37.0); RBC 3.1 mil/uL (4.50-6.00); RDW 17.1 % (10.5-14.5); WBC 6.6 thou/uL (4.0-11.0)
[2016-10-17 05:38] LABS: CALCIUM 8.8 mg/dL (8.5-10.1); CREATININE 1.1 mg/dL (0.7-1.3); MAGNESIUM 2.1 mg/dL (1.8-2.4); POTASSIUM 3.4 mmol/L (3.5-5.1)
[2016-10-18] VITALS (25 sets, daily range): BP systolic 139–183; BP diastolic 53–78
[2016-10-18 04:39] LABS: HEMATOCRIT 27.6 % (42.0-52.0); HEMOGLOBIN 9.1 gm/dL (14.0-18.0); MCH 29.6 pg (26.0-34.0); MCHC 33.1 g/dL (28.0-37.0); MCV 89.4 fL (80.0-100.0); RBC 3.09 mil/uL (4.50-6.00); RDW 17.3 % (10.5-14.5); WBC 5.8 thou/uL (4.0-11.0)
[2016-10-18 04:52] LABS: CALCIUM 8.5 mg/dL (8.5-10.1); CREATININE 1.1 mg/dL (0.7-1.3); POTASSIUM 3.7 mmol/L (3.5-5.1)
[2016-10-19] VITALS (25 sets, daily range): BP systolic 123–192; BP diastolic 41–97
[2016-10-20] VITALS (26 sets, daily range): BP systolic 127–180; BP diastolic 49–76
[2016-10-20 05:38] LABS: ABG SAMPLE TYPE ARTERIAL; BE(vivo) 13.5 mmol/L (-2 to +3); HCO3 39.2 mmol/L (22.0-26.0); LACTATE 0.85 mmol/L (0.5-2.0); O2(CT) 14.2 mL/dL (15.0-23.0); O2Hb 96.7 % (92.0-98.0); PCO2 56.7 mmHg (35.0-45.0); PO2 106.9 mmHg (80.0-100.0); pH 7.458 (7.360-7.450)
[2016-10-20 05:39] LABS: FIO2 30 %; STICK SITE L.RADIAL; TIDAL VOLUME 550 ml
[2016-10-20 13:07] LABS: ABG SAMPLE TYPE ARTERIAL; BE(vivo) 14.2 mmol/L (-2 to +3); HCO3 40.3 mmol/L (22.0-26.0); LACTATE 0.83 mmol/L (0.5-2.0); O2(CT) 15.2 mL/dL (15.0-23.0); O2Hb 97.3 % (92.0-98.0); PCO2 58.3 mmHg (35.0-45.0); PO2 112.6 mmHg (80.0-100.0); pH 7.457 (7.360-7.450); sO2 98.2 % (92.0-98.0)
[2016-10-20 13:08] LABS: Pressure Support 8 cm H20; STICK SITE R.RADIAL
[2016-10-20 13:09] LABS: ABG COMMENT CPAP TRIAL.
[2016-10-20 21:14] LABS: ABG SAMPLE TYPE ARTERIAL; BE(vivo) 14.7 mmol/L (-2 to +3); HCO3 42.2 mmol/L (22.0-26.0); LACTATE 0.67 mmol/L (0.5-2.0); O2(CT) 15.6 mL/dL (15.0-23.0); O2Hb 97.4 % (92.0-98.0); PO2 137.6 mmHg (80.0-100.0); pH 7.401 (7.360-7.450); sO2 98.6 % (92.0-98.0); tCO2 44.3 mmol/L (24.0-30.0)
[2016-10-20 21:15] LABS: PCO2 69.5 mmHg (35.0-45.0); STICK SITE R.RADIAL
[2016-10-20 21:16] LABS: ABG COMMENT NO COMPLICATIONS.
[2016-10-21] VITALS (56 sets, daily range): BP systolic 126–233; BP diastolic 52–109
[2016-10-21 05:13] LABS: ABG SAMPLE TYPE ARTERIAL; BE(vivo) 13.1 mmol/L (-2 to +3); LACTATE 0.74 mmol/L (0.5-2.0); O2(CT) 15.5 mL/dL (15.0-23.0); pH 7.371 (7.360-7.450); sO2 98.9 % (92.0-98.0); tCO2 43.2 mmol/L (24.0-30.0)
[2016-10-21 05:14] LABS: PCO2 72.4 mmHg (35.0-45.0)
[2016-10-21 05:15] LABS: FIO2 50 %; Pressure Support 5 cm H20; STICK SITE L.RADIAL
[2016-10-21 06:00] LABS: MAGNESIUM 2.2 mg/dL (1.8-2.4); PHOSPHORUS 4.3 mg/dL (2.5-4.9); POTASSIUM 3.1 mmol/L (3.5-5.1); TOTAL BILIRUBIN 0.3 mg/dL (<0.1-1.0); TOTAL PROTEIN 7.1 g/dL (6.4-8.2)
[2016-10-21 06:05] LABS: HEMATOCRIT 30.3 % (42.0-52.0); HEMOGLOBIN 9.9 gm/dL (14.0-18.0); MCH 29.6 pg (26.0-34.0); MCHC 32.9 g/dL (28.0-37.0); PLATELET COUNT 158 thou/uL (150-400); RBC 3.36 mil/uL (4.50-6.00); RDW 16.4 % (10.5-14.5); WBC 6.5 thou/uL (4.0-11.0)
[2016-10-21 06:09] LABS: MANUAL DIFF YES
[2016-10-21 07:38] LABS: ABSOLUTE NEUTROPHILS 3.4 thou/uL (1.4-8.2); ANISOCYTOSIS 1+; TOTAL CELL COUNT 100
[2016-10-21 17:40] LABS: ABG SAMPLE TYPE ARTERIAL; BE(vivo) 15.5 mmol/L (-2 to +3); HCO3 42.2 mmol/L (22.0-26.0); LACTATE 0.81 mmol/L (0.5-2.0); O2(CT) 15.8 mL/dL (15.0-23.0); O2Hb 98.4 % (92.0-98.0); PCO2 64.2 mmHg (35.0-45.0); PO2 366.5 mmHg (80.0-100.0); pH 7.436 (7.360-7.450); sO2 99.8 % (92.0-98.0); tCO2 44.2 mmol/L (24.0-30.0)
[2016-10-21 17:41] LABS: Pressure Support 10 cm H20; STICK SITE R.RADIALN
[2016-10-22] VITALS (51 sets, daily range): BP systolic 93–181; BP diastolic 45–85
[2016-10-22 06:36] LABS: HEMATOCRIT 29.6 % (42.0-52.0); HEMOGLOBIN 9.8 gm/dL (14.0-18.0); MCH 29.7 pg (26.0-34.0); MCHC 33.2 g/dL (28.0-37.0); MCV 89.5 fL (80.0-100.0); PLATELET COUNT 161 thou/uL (150-400); RBC 3.31 mil/uL (4.50-6.00); RDW 16.9 % (10.5-14.5); WBC 8.9 thou/uL (4.0-11.0)
[2016-10-22 06:37] LABS: MANUAL DIFF YES
[2016-10-22 06:44] LABS: CALCIUM 9.2 mg/dL (8.5-10.1); POTASSIUM 3.6 mmol/L (3.5-5.1)
[2016-10-22 08:36] LABS: ABSOLUTE NEUTROPHILS 5.8 thou/uL (1.4-8.2); ANISOCYTOSIS 1+; MYELOCYTES 1 %; TOTAL CELL COUNT 100
[2016-10-23] VITALS (36 sets, daily range): BP systolic 119–199; BP diastolic 46–87
[2016-10-24] VITALS (46 sets, daily range): BP systolic 113–180; BP diastolic 46–85
[2016-10-24 05:19] LABS: CALCIUM 8.9 mg/dL (8.5-10.1); CREATININE 0.9 mg/dL (0.7-1.3); MAGNESIUM 2.2 mg/dL (1.8-2.4); PHOSPHORUS 4.1 mg/dL (2.5-4.9); POTASSIUM 3.7 mmol/L (3.5-5.1); TOTAL BILIRUBIN 0.2 mg/dL (<0.1-1.0); TOTAL PROTEIN 7.3 g/dL (6.4-8.2)
[2016-10-25] VITALS (34 sets, daily range): BP systolic 119–183; BP diastolic 54–95
[2016-10-26] VITALS (21 sets, daily range): BP systolic 87–188; BP diastolic 53–89
[2016-10-26 05:09] LABS: ALBUMIN 2.1 g/dL (3.4-5.0); CALCIUM 9.1 mg/dL (8.5-10.1); CREATININE 0.9 mg/dL (0.7-1.3); POTASSIUM 4.2 mmol/L (3.5-5.1); TOTAL BILIRUBIN 0.2 mg/dL (<0.1-1.0); TOTAL PROTEIN 7.5 g/dL (6.4-8.2)
[2016-10-26 05:17] LABS: ABG SAMPLE TYPE ARTERIAL; BE(vivo) 6.3 mmol/L (-2 to +3); HCO3 32.3 mmol/L (22.0-26.0); LACTATE 0.93 mmol/L (0.5-2.0); O2(CT) 14.5 mL/dL (15.0-23.0); O2Hb 97.5 % (92.0-98.0); PCO2 54.5 mmHg (35.0-45.0); STICK SITE R.RADIAL; TIDAL VOLUME 500 ml; pH 7.391 (7.360-7.450); sO2 98.7 % (92.0-98.0)
[2016-10-26 06:44] LABS: PLATELET COUNT 231 thou/uL (150-400); PLATELET ESTIMATE NORMAL; TOTAL CELL COUNT 100
[2016-10-26 06:45] LABS: HEMATOCRIT 28.1 % (42.0-52.0); HEMOGLOBIN 9.5 gm/dL (14.0-18.0); MCH 29.6 pg (26.0-34.0); MCHC 33.7 g/dL (28.0-37.0); MCV 87.6 fL (80.0-100.0); RBC 3.21 mil/uL (4.50-6.00); RDW 17.2 % (10.5-14.5); WBC 6.9 thou/uL (4.0-11.0)
[2016-10-26 06:47] LABS: ABSOLUTE NEUTROPHILS 4.3 thou/uL (1.4-8.2); MANUAL DIFF YES
[2016-10-26 14:27] LABS: CALCIUM 9.3 mg/dL (8.5-10.1); CREATININE 0.9 mg/dL (0.7-1.3); POTASSIUM 4.3 mmol/L (3.5-5.1)
[2016-10-27] VITALS (19 sets, daily range): BP systolic 90–160; BP diastolic 47–87
[2016-10-28] VITALS (17 sets, daily range): BP systolic 97–137; BP diastolic 42–73
[2016-10-29 00:01] VITALS: BP 107/58
[2016-10-29 04:00] VITALS: BP 95/51
[2016-10-29 08:00] VITALS: BP 105/76
[2016-10-29 12:00] VITALS: BP 132/94
[2016-10-29 16:00] VITALS: BP 121/60
[2016-10-29 20:00] VITALS: BP 106/50
[2016-10-30] VITALS (11 sets, daily range): BP systolic 52–112; BP diastolic 37–58
== END 2016-10-30 19:24 | DRG 870 ==
LOC: ER 23:29 → ICU 10-11 01:14 → EROBS 10-11 01:14 → ICU 10-11 02:02 → 2N 10-11 02:02 → ICU 10-11 04:19
PROVIDERS: Emergency Medicine; Family Medicine; Hospitalist; Internal Medicine Endocrinology, Diabetes & Metabolism; Internal Medicine Pulmonary Disease; Nurse Practitioner Family; Specialist
PROC: 3E0336Z Introduction of Nutritional Substance into Peripheral Vein, Percutaneous Approach (ICD-10-PCS; 2016-10-11)
PROC: 30233N1 Transfusion of Nonautologous Red Blood Cells into Peripheral Vein, Percutaneous Approach (ICD-10-PCS; 2016-10-11)
PROC: B548ZZA Ultrasonography of Superior Vena Cava, Guidance (ICD-10-PCS; 2016-10-11)
PROC: 02HV33Z Insertion of Infusion Device into Superior Vena Cava, Percutaneous Approach (ICD-10-PCS; 2016-10-11)
PROC: BB4BZZZ Ultrasonography of Pleura (ICD-10-PCS; 2016-10-12)
PROC: 0W993ZZ Drainage of Right Pleural Cavity, Percutaneous Approach (ICD-10-PCS; 2016-10-12)
PROC: 5A1955Z Respiratory Ventilation, Greater than 96 Consecutive Hours (ICD-10-PCS; principal; 2016-10-17)
PROC: 5A09357 Assistance with Respiratory Ventilation, Less than 24 Consecutive Hours, Continuous Positive Airway Pressure (ICD-10-PCS; 2016-10-21)
DX: A41.9 Sepsis, unspecified organism (principal); E43 Unspecified severe protein-calorie malnutrition; J96.21 Acute and chronic respiratory failure with hypoxia; G93.41 Metabolic encephalopathy; I50.41 Acute combined systolic (congestive) and diastolic (congestive) heart failure; T80.219A Unspecified infection due to central venous catheter, initial encounter; I31.3 Pericardial effusion (noninflammatory); K63.2 Fistula of intestine; E87.0 Hyperosmolality and hypernatremia; N39.0 Urinary tract infection, site not specified; I13.0 Hypertensive heart and chronic kidney disease with heart failure and stage 1 through stage 4 chronic kidney disease, or unspecified chronic kidney disease; I25.10 Atherosclerotic heart disease of native coronary artery without angina pectoris; Z68.23 Body mass index [BMI] 23.0-23.9, adult; L89.510 Pressure ulcer of right ankle, unstageable; E87.6 Hypokalemia; I27.2 Other secondary pulmonary hypertension; J44.9 Chronic obstructive pulmonary disease, unspecified; G40.909 Epilepsy, unspecified, not intractable, without status epilepticus; K21.9 Gastro-esophageal reflux disease without esophagitis; M19.90 Unspecified osteoarthritis, unspecified site; Z66 Do not resuscitate; I95.9 Hypotension, unspecified; R00.0 Tachycardia, unspecified; E11.22 Type 2 diabetes mellitus with diabetic chronic kidney disease; E03.9 Hypothyroidism, unspecified; N18.9 Chronic kidney disease, unspecified; Z79.899 Other long term (current) drug therapy; Z79.4 Long term (current) use of insulin; Z93.3 Colostomy status; Z90.49 Acquired absence of other specified parts of digestive tract; Z89.519 Acquired absence of unspecified leg below knee
CPT/HCPCS: 10078; 27000; 85076